=== PATIENT | female | born 1960 | race Caucasian/White ===

== ENCOUNTER 2021-09-20 09:19 | Emergency (ER) | payer MEDICAID ==
[~2021-09-20] VITALS: Ht 167.6 cm; Wt 100.0 kg
--- NOTE | 2021-09-20 09:35 | PHYS DOC ---
Past History Past Medical History: Diabetes, Hypertension (GABRIELLA ANDREW ) Past Surgical History: No Surgical History (GABRIELLA ANDREW ) Smoking: Cigarettes Alcohol Use: None Drug Use: Marijuana (GABRIELLA ANDREW DO) General Adult EDM: Chief Complaint: COUGH HPI: HPI: Patient presents to the emergency department for a white productive cough that started this morning. Patient reports that she did feel short of breath but that has resolved. Patient denies fevers, nausea, vomiting, loss of taste or smell, chest pain. History of hypertension diabetes. (JADEN MAK APRN) Review of Systems: Review of Systems: Constitutional: negative unless reported in HPI Eyes: negative unless reported in HPI HENT: negative unless reported in HPI Respiratory: negative unless reported in HPI Cardiovascular: negative unless reported in HPI GI: negative unless reported in HPI : negative unless reported in HPI Musculoskeletal: negative unless reported in HPI Integument: negative unless reported in HPI Neurologic: negative unless reported in HPI Endocrine: negative unless reported in HPI Lymphatic: negative unless reported in HPI Psychiatric: negative unless reported in HPI (JADEN MAK APRN) Physical Exam: PE: Constitutional: Well developed, well nourished, no acute distress, non-toxic ap pearance. [] HENT: Normocephalic, atraumatic, bilateral external ears normal, oropharynx moist, no oral exudates, nose normal. [] Eyes: PERRL, EOMI, conjunctiva normal, no discharge. [] Neck: Normal range of motion, no tenderness, supple, no stridor. [] Cardiovascular:Heart rate regular rhythm, no murmur [] Lungs & Thorax: Bilateral breath sounds clear to auscultation [] Abdomen: Bowel sounds normal, soft, no tenderness, no masses, no pulsatile masses. [] Skin: Warm, dry, no erythema, no rash. [] Back: Normal range of motion Extremities: No tenderness, no cyanosis, no clubbing, ROM intact, no edema. [] Neurologic: Alert and oriented X 3, normal motor function, normal sensory function, no focal deficits noted. [] Psychologic: Affect normal, judgement normal, mood normal. [] (JADEN MAK APRN) EKG: EKG: [] (JADEN MAK APRN) Radiology/Procedures: Radiology/Procedures: []PROCEDURE: PORTABLE CHEST 1V AP chest. HISTORY: Cough AP view was taken of the chest. There is no pneumothorax or pleural effusion. Heart is normal in size. There are no acute infiltrates. IMPRESSION: 1. No acute infiltrates. Electronically signed by: Suze Wall MD (09/20/2021 10:20 AM) [id number] DICTATED AND SIGNED BY: SUZE WALL MD DATE: 09/20/21 1019 CC: JADEN MAK APRN; PCP,NO ~MTH0 0 (JADEN MAK APRN) Heart Score: C/O Chest Pain: N/A Risk Factors: Risk Factors: DM, Current or recent (<one month) smoker, HTN, HLP, family history of CAD, obesity. Risk Scores: Score 0 - 3: 2.5% MACE over next 6 weeks - Discharge Home Score 4 - 6: 20.3% MACE over next 6 weeks - Admit for Clinical Observation Score 7 - 10: 72.7% MACE over next 6 weeks - Early Invasive Strategies (JADEN MAK APRN) Course & Med Decision Making: Course & Med Decision Making Pertinent Labs and Imaging studies reviewed. (See chart for details) [] Patient resents emergency department for a white productive cough that started this morning. Patient will be tested for influenza and COVID. Patient will have chest x-ray to rule out pneumonia. Patient is positive for COVID-19. The chest x-ray did not show any pneumonia. Patient's vital signs are stable she is in no acute distress. Patient advised to purchase a pulse oximeter. She will be discharged home with cough medication and inhaler. Educated on symptomatic treatment. I discussed with patient all findings and diagnostic testing as well as the need to follow-up with PCP for further evaluation and treatment or return to the ER if any new or worsening symptoms. Strict return precautions were also discussed at length. Patient voiced understanding and agreement with the plan. Patient is hemodynamically stable at the time of disposition. (JADEN MAK APRN) Dragon Disclaimer: Dragon Disclaimer: This electronic medical record was generated, in whole or in part, using a voice recognition dictation system. (JADEN MAK APRN) Departure Departure: Impression: Primary Impression: COVID-19 Disposition: HOME / SELF CARE / HOMELESS Condition: GOOD Referrals: PCP,NO (PCP) Patient Instructions: Cough, Adult Additional Instructions: You were seen in the emergency department today for a cough. You were Covid positive. Your chest x-ray did not show a pneumonia. Self isolate per the CDC guidelines. Please take Tylenol and ibuprofen for any pain or fevers. Increase your fluids and rest. Purchase a pulse oximeter at the pharmacy and monitor your oxygen saturation levels at home, you need to return to the emergency department if they drop below 90%. You are being discharged home with cough medication he can take as needed as well as an albuterol inhaler that you can use when he feels short of breath. Follow-up with your primary care provider tomorrow regarding your ER visit. Return to the emergency department if you develop shortness of breath, chest pain, high fevers refractory to treatment, intractable nausea or vomiting, weakness. You have been tested for or diagnosed with COVID-19. It is an infection caused by a new type of coronavirus. COVID-19 will cause cold-like or mild flu symptoms in most. It can cause more severe symptoms like problems breathing in some. There is no treatment for COVID-19. The body will clear the infection over time. Self-care will help to ease discomfort. Steps to Take: Self-Care Rest as needed. Healthy habits may help you feel better. Steps include: Choose healthy foods including fruits and vegetables. Drink water throughout the day. Get plenty of sleep each night. If you smoke, try to quit. It may ease breathing. Avoid alcohol. Keep Others Healthy The virus can spread to others. Droplets are released every time you sneeze or cough. The droplets can get into the mouth, nose, or eyes of people near you and lead to infection. To lower the chances of spreading COVID-19 to others: Stay at home until your doctor has said it is safe to leave. If you tested positive this will mean staying isolated until both of the following are true: At least 7 days have passed since the start of illness. You are free of fever for at least 72 hours without the use of medicine. During this time: - Avoid public areas, events, or transportation. Do not return to work or school until your doctor has said it is safe to do so. - Call ahead if you need to go to a medical center. Let them know you may have COVID-19. It will help them guide you where to go. They may also ask you to wear a facemask when you come to the office. - If you call for emergency medical services, let them know you may have COVID- 19. While at home: - Try to avoid close contact with others. Stay about 6 feet away. - If possible, spend most of your time in a separate room from others. - Use a face mask if you will be in close contact with others such as sharing a room or vehicle. - Have someone wipe down common surfaces in the home. Use household career specialist every day on areas like doorknobs, counters, or sinks. - Cough or sneeze into a tissue. Throw the tissue away right after use. If a tissue is not available, cough or sneeze into your elbow. - Wash your hands often. Wash them after sneezing or coughing. Use soap and water and wash for at least 20 seconds. Alcohol based hand commercial cleaner can be used if soap and water is not available. - Do not prepare food for others. Avoid sharing personal items like forks, spoons, or toothbrushes. - Avoid close contact with pets while you are sick. There is no evidence of the virus passing to pets. This is a safety step until more is known about this virus. Isolation can be frustrating. Social interaction can help. Keep in touch with friends and family through phone and tech options. You can still interact with others in your home, just keep a safe distance of about 6 feet. Follow-up: Your doctors office will check in with you to see if there are any changes in your health. You may be asked to keep track of symptoms to share with them. They will also let you know when you are clear to be in public again. Problems to Look Out For: Contact your doctor if your recovery is not going as you expect. Get emergency care if you have problems such as: - Trouble breathing - Nonstop chest pain or pressure - Changes in awareness, confusion, or problems waking - Lips or face have bluish color - Worsening of symptoms If you think you have an emergency, call for emergency medical services right away. As taken from [facility] Albuterol Sulfate (PROAIR HFA INHALER) 8.5 Gm Hfa.aer.ad 2 PUFF IH PRN Q4-6HRS PRN for wheezing for 21 Days, #1 INHALER 0 Refills as needed for wheezing Prov: JADEN MAK APRN 09/20/21 Benzonatate (BENZONATATE) 100 Mg Capsule 1 CAP PO TID for cough for 7 Days, #21 CAP 0 Refills Prov: JADEN MAK APRN 09/20/21 Attending Signature Attending Signature I have reviewed the PA/MUSSEL OPENER's note and plan of care. I was available for consultation as needed during the patient's visit in the emergency department. I agree with the clinical impression, plan, and disposition. (GABRIELLA ANDREW DO) JADEN MAK APRN Sep 20, 2021 09:34 GABRIELLA ANDREW DO Sep 20, 2021 21:36
[2021-09-20 09:40] VITALS: BP 180/102
--- NOTE | 2021-09-20 10:22 | RAD ---
AP chest. HISTORY: Cough AP view was taken of the chest. There is no pneumothorax or pleural effusion. Heart is normal in size . There are no acute infiltrates. IMPRESSION: 1. No acute infiltrates. Electronically signed by: Wong Paige MD (09/20/2021 10:20 AM) [id number]
[2021-09-20 10:26] LABS: INFLUENZA A PATIENT NEGATIVE (NEGATIVE); INFLUENZA B PATIENT NEGATIVE (NEGATIVE)
[2021-09-20] MEDS ORDERED: ALBU2.5V8 IH (10:33)
[2021-09-20] MEDS ORDERED: BENZ-8 PO (10:33)
== END 2021-09-20 10:55 | disposition home or self-care (01) ==
LOC: ER 09:19
DX: U07.1 COVID-19 (principal); E11.9 Type 2 diabetes mellitus without complications; I10 Essential (primary) hypertension; F17.210 Nicotine dependence, cigarettes, uncomplicated
CPT/HCPCS: 71045; 87428; 99284